=== PATIENT | female | born 1985 | race African-American/Black ===

== ENCOUNTER 2016-07-21 10:58 | Emergency (ER) | payer OTHER ==
[~2016-07-21] VITALS: Ht 162.6 cm; Wt 45.0 kg
[~2016-07-21 10:58] MED LIST: ARIP20 PO; HALO50P IM
[2016-07-21 10:59] VITALS: BP 151/96; PULSE 61; RESP 17; TEMP 98.2; O2SAT 99
[2016-07-21] MEDS ORDERED: HALD50IN IM (11:16)
--- NOTE | 2016-07-21 11:52 | PD ---
HPI Chief Complaint: Complaint Time Seen by Provider: 11:20 Travel History International Travel<30 days: No Contact w/Intl Traveler<30days: No Traveled to known affect area: No History of Present Illness HPI 31-year-old female came to the emergency room with history of vaginal itching and discharge. Patient came here to get it checked. She said she has had history of STD in the past. No history of fever or chills. No history of abdominal pain. [facility] Past Medical History Narrative Medical List of her past medical, surgical, social and family history was reviewed from the nursing note. Arthritis: No Asthma: No Autoimmune Disease: No Blood Disorders: No Bipolar Disorder: Yes Anxiety: No Depression: Yes Heart Rhythm Problems: No High Cholesterol: No Chemotherapy: No Chest Pain: No Congestive Heart Failure: No COPD: No Cerebrovascular Accident: No Diminished Hearing: No Gastrointestinal Disorders: Yes (VOMITING) GERD: No Gestational Age in Weeks: 28 Glaucoma: No Genitourinary: No Hepatitis: No Hiatal Hernia: No Hypertension: No Kidney Stones: No Musculoskeletal: No Neurologic: No Psychiatric: Yes (Inpatient, outpatient, psychotropic medications, and diagnosis) Reproductive: Yes (CHRONIC HX VAGINITIS ) Respiratory: No Myocardial Infarction: No Radiation Therapy: No Renal Failure: No Sickle Cell Disease: No Sleep Apnea: No Thyroid Disease: No Ulcer: No Tetanus Vaccination: > 5 Years Influenza Vaccination: No PNEUMOCCOCAL Vaccine (Year): 1 ?: Unknown LMP: JUNE 2016 : 2 Para: 1 Miscarriage: 0 : 1 Past Surgical History Surgical History: No Previous Surgery AICD: No Pacemaker: No Other Surgery: No Social History Alcohol Use: Yes (WINE OCCASIONALLY) Tobacco Use: No Substance Use: No (Patient denies.) Allergies-Medications (Allergen,Severity, Reaction): Coded Allergies: Latex (Verified Allergy, Severe, Itching, 07/21/16) Per Pt. Comments List of her allergies reviewed from the nurse's note. Reported Meds & Prescriptions Reported Meds & Active Scripts Active Flagyl (Metronidazole) 250 Mg Tab 250 Mg PO TID 7 Days Doxycycline Hyclate 100 Mg Cap 100 Mg PO BID 7 Days Reported Haldol Decanoate Inj (Haloperidol Decanoate) 50 Mg/Ml Inj 50 Mg IM Q28D Narrative Medication List of her home medications reviewed from the nursing note. Review of Systems Except as stated in HPI: all other systems reviewed are Neg Physical Exam Narrative GENERAL: Awake, alert, anxious, no obvious distress SKIN: Focused skin assessment warm/dry. HEAD: Atraumatic. Normocephalic. EYES: Pupils equal and round. No scleral icterus. No injection or drainage. ENT: No nasal bleeding or discharge. Mucous membranes pink and moist. NECK: Trachea midline. No JVD. CARDIOVASCULAR: Regular rate and rhythm. No murmur appreciated. RESPIRATORY: No accessory muscle use. Clear to auscultation. Breath sounds equal bilaterally. GASTROINTESTINAL: Abdomen soft, non-tender, nondistended. Hepatic and splenic margins not palpable. : Foul-smelling discharge noticed at the vaginal introitus. Speculum exam showed awake greenish cheesy discharge that was followed her. Patient had mild CMT and adnexal tenderness. MUSCULOSKELETAL: No obvious deformities. No clubbing. No cyanosis. No edema. NEUROLOGICAL: Awake and alert. No obvious cranial nerve deficits. Motor grossly within normal limits. Normal speech. PSYCHIATRIC: Appropriate mood and affect; insight and judgment normal. Data Data Last Documented VS Vital Signs Date Time Temp Pulse Resp B/P Pulse Ox O2 Delivery O2 Flow Rate FiO2 07/21/16 11:15 16 07/21/16 10:59 98.2 61 151/96 99 Orders Gc And Chlamydia Pcr (07/21/16 11:20) Wet Prep Profile (07/21/16 11:20) Urinalysis - C+S If Indicated (07/21/16 11:20) Ed Urine Pregnancytest Poc (07/21/16 11:23) Ceftriaxone Inj (Rocephin Inj) (07/21/16 12:45) Doxycycline (Vibramycin) (07/21/16 12:45) Metronidazole (Flagyl) (07/21/16 12:45) Labs Laboratory Tests Test 07/21/16 07/21/16 11:25 12:45 Urine Color YELLOW Urine Turbidity HAZY Urine pH 6.5 Urine Specific Guin 1.033 Urine Protein TRACE mg/dL Urine Glucose (UA) NEG mg/dL Urine Ketones NEG mg/dL Urine Occult Blood NEG Urine Nitrite NEG Urine Bilirubin NEG Urine Urobilinogen LESS THAN 2.0 MG/DL Urine Leukocyte Esterase LARGE Urine RBC 1 /hpf Urine WBC 2 /hpf Urine Squamous Epithelial 10 /hpf Cells Urine Hyaline Casts 1 /lpf Urine Mucus FEW /lpf Microscopic Urinalysis Comment CULT NOT INDICATED Clue Cells (Wet Prep) NONE SEEN Vaginal Trichomonas (Wet Prep) NONE SEEN Vaginal Yeast (Wet Prep) NONE SEEN Chlamydia trachomatis DNA NOT DETECTED (PCR) Neisseria gonorrhoeae DNA NOT DETECTED (PCR) MDM Medical Decision Making Medical Screen Exam Complete: Yes Emergency Medical Condition: Yes Medical Record Reviewed: Yes Differential Diagnosis STD, vaginitis, candidiasis Narrative Course 11:52 AM awaiting for the UA. I will be performing the pelvic exam soon. 12:48 PM based on the exam which was highly suggestive of STD at have gone ahead and ordered treatments. She'll go home on prescriptions. She's been explained about the procedure as well as to contact her partners to be treated if the tests are positive for STD. Patient seems to have limited intellect and repeats the same questions that have already been answered by me. I will asked the nurse to reiterate these once again. Procedures EKG Prior to Arrival: No Diagnosis Primary Impression: STD (female) Referrals: Primary Care Physician 2 days Additional Instructions: Please return to the ER if the condition worsens or any other new concerns. He shouldn't practice protected sex using condoms only for the next 3 weeks. If the tests are positive for GC and/or chlamydia we will call you in which case she'll have to notify your partner(s) so that they can be treated as well. Take the medications as per the prescription direction and finish the course. Med/Other Pt SpecificInfo: Prescription(s) given Scripts Metronidazole (Flagyl)250 Mg [id number] Mg PO TID 7 Days Ref 0 Prov:Kevin Lucero MD 07/21/16 Doxycycline Hyclate 100 Mg [id number] Mg PO BID 7 Days Ref 0 Prov:Kevin Lucero MD 07/21/16 Disposition: 01 DISCHARGE HOME Condition: Stable Kevin Lucero MD July 21, 2016 11:52
[2016-07-21 12:09] LABS: BLOOD, URINE NEG (NEG); COMMENT (UR) CULT NOT INDICATED; CULTURE IF INDICATED CULT NOT INDICATED; GLUCOSE,URINE NEG (NEG); HYALINE CAST, URINE 1 /lpf (RARE); KETONE, URINE NEG (NEG); MUCUS URINE FEW /lpf (OCC); NITRITE,URINE NEG (NEG); PH, URINE 6.5 (5.0-8.5); SQUAMOUS EPITHELIAL CELL URINE 10 /hpf (0-5); URINE COLOR YELLOW (YELLW/STRAW)
[2016-07-21] MEDS ORDERED: cefTRIAXone 250 MG VIAL IM ONE (12:45)
[2016-07-21] MEDS ORDERED: metroNIDAZOLE 500 MG TAB PO ONE (12:45)
[2016-07-21] MEDS ORDERED: DOXYCYCLINE HYCLATE 100 MG CAP PO ONE (12:45)
[2016-07-21] MEDS ORDERED: METR250 PO (12:50)
[2016-07-21] MEDS ORDERED: DOXY100C PO (12:50)
[2016-07-21 15:59] LABS: CHLAMYDIA PCR NOT DETECTED (NOT DETECT); NEISSERIA PCR NOT DETECTED (NOT DETECT)
== END 2016-07-21 13:43 | disposition home or self-care (01) ==
LOC: NEPD 10:58
DX: A64 Unspecified sexually transmitted disease (principal)
CPT/HCPCS: 81001; 84703; 87210; 87491; 87591; 96372; 99283; J0696

== ENCOUNTER 2016-08-26 06:08 | Emergency (ER) | payer OTHER ==
[~2016-08-26] VITALS: Ht 162.6 cm; Wt 47.5 kg
[~2016-08-26 06:08] MED LIST changes: -ARIP20 PO; +DOXY100C PO; +HALD50IN IM; -HALO50P IM; +METR250 PO
[2016-08-26 06:25] VITALS: BP 103/56; PULSE 70; RESP 14; TEMP 98; O2SAT 96
== END 2016-08-26 07:37 | disposition left against medical advice (07) ==
LOC: PHED 06:08
DX: R10.10 Upper abdominal pain, unspecified (principal)
CPT/HCPCS: 99281

== ENCOUNTER 2016-08-28 06:08 | Emergency (ER) | payer OTHER ==
[~2016-08-28] VITALS: Ht 162.6 cm; Wt 46.8 kg
[2016-08-28 06:13] VITALS: BP 99/71; PULSE 88; RESP 18; TEMP 98.1; O2SAT 100
--- NOTE | 2016-08-28 06:36 | PD ---
HPI Chief Complaint: vaginal discharge Time Seen by Provider: 06:18 Travel History International Travel<30 days: No Contact w/Intl Traveler<30days: No History of Present Illness HPI This is a 31-year-old female who presents to the emergency department with vaginal discharge, bloating and lower abdominal discomfort for 2 days. She denies any fevers or chills. Her symptoms have been mild, and constant. She struggled with vaginal discharge in the past but she says the bloating is new. She thinks she might be although she did have a menstrual cycle 2 weeks ago. She says that she's had negative urine test in the past despite being . PFSH Past Medical History Arthritis: No Asthma: No Autoimmune Disease: No Blood Disorders: No Bipolar Disorder: Yes Anxiety: No Depression: Yes Heart Rhythm Problems: No High Cholesterol: No Chemotherapy: No Chest Pain: No Congestive Heart Failure: No COPD: No Cerebrovascular Accident: No Diminished Hearing: No Gastrointestinal Disorders: Yes (VOMITING) GERD: No Gestational Age in Weeks: 28 Glaucoma: No Genitourinary: No Hepatitis: No Hiatal Hernia: No Hypertension: No Kidney Stones: No Musculoskeletal: No Neurologic: No Psychiatric: Yes (Inpatient, outpatient, psychotropic medications, and diagnosis) Reproductive: Yes (CHRONIC HX VAGINITIS ) Respiratory: No Myocardial Infarction: No Radiation Therapy: No Renal Failure: No Sickle Cell Disease: No Sleep Apnea: No Thyroid Disease: No Ulcer: No PNEUMOCCOCAL Vaccine (Year): 1 : 2 Para: 1 Miscarriage: 0 : 1 Past Surgical History AICD: No Pacemaker: No Other Surgery: No Social History Alcohol Use: Yes (WINE OCCASIONALLY) Tobacco Use: No Substance Use: No (Patient denies.) Allergies-Medications (Allergen,Severity, Reaction): Coded Allergies: Latex (Verified Allergy, Severe, Itching, 08/26/16) Per Pt. Reported Meds & Prescriptions Reported Meds & Active Scripts Active Flagyl (Metronidazole) 250 Mg Tab 250 Mg PO TID 7 Days Doxycycline Hyclate 100 Mg Cap 100 Mg PO BID 7 Days Reported Haldol Decanoate Inj (Haloperidol Decanoate) 50 Mg/Ml Inj 50 Mg IM Q28D Review of Systems Except as stated in HPI: all other systems reviewed are Neg Physical Exam Narrative Patient did not allow me to do a physical exam Data Data Last Documented VS Vital Signs Date Time Temp Pulse Resp B/P Pulse Ox O2 Delivery O2 Flow Rate FiO2 08/28/16 06:13 98.1 88 18 99/71 100 MDM Medical Decision Making Medical Screen Exam Complete: Yes Emergency Medical Condition: Yes Interpretation(s) Afebrile, no tachycardia, normotensive Differential Diagnosis Pelvic inflammatory disease, bacterial vaginosis, cervicitis, yeast infection, Narrative Course This is a 31-year-old female who presents to the emergency department with vaginal discharge and bloating. In my discussion with her I expressed my concern for the fact that she doesn't have a primary tuber machine operator. I explained to her that we don't do gynecologic health care maintenance including PAP smears in the emergency department. Per her records she has had 20 GC/ chlamydia tests performed in the [place] emergency departments in our system. I expressed to her that she should have a tuber machine operator managing her routine care , and I discussed Women's care now with her. The patient does have a history of bipolar disorder and became fairly antagonistic with me. She accused me of "not liking black people" and subsequently refused a pelvic exam and wanted to leave when I told her that we don't perform blood tests for this indication in the ED, only urine tests. I think her presentation and her behavior is related to her bipolar disorder. Olinda Padilla MD Aug 28, 2016 06:35
== END 2016-08-28 06:44 | disposition left against medical advice (07) ==
LOC: PHED 06:08
DX: N89.8 Other specified noninflammatory disorders of vagina (principal); F31.9 Bipolar disorder, unspecified
CPT/HCPCS: 99281

== ENCOUNTER 2016-10-27 09:32 | Emergency (ER) | payer OTHER ==
[~2016-10-27] VITALS: Ht 162.6 cm; Wt 46.0 kg
[2016-10-27 09:34] VITALS: BP 97/61; PULSE 90; RESP 20; TEMP 98.1; O2SAT 100
--- NOTE | 2016-10-27 10:24 | PD ---
HPI Chief Complaint: Contact Lens Fitter Problem/Complaint Time Seen by Provider: 09:50 Travel History International Travel<30 days: No Contact w/Intl Traveler<30days: No Traveled to known affect area: No History of Present Illness HPI The patient was seen and examined in the presence of the nurse. This patient complains of painful sexual intercourse. Duration 2 days. She also complains of vaginal discharge. Denies fever or bleeding. Severity is moderate. No alleviating factors PFSH Past Medical History Arthritis: No Asthma: No Autoimmune Disease: No Blood Disorders: No Bipolar Disorder: Yes Anxiety: No Depression: Yes Heart Rhythm Problems: No High Cholesterol: No Chemotherapy: No Chest Pain: No Congestive Heart Failure: No COPD: No Cerebrovascular Accident: No Diminished Hearing: No Gastrointestinal Disorders: Yes (VOMITING) GERD: No Gestational Age in Weeks: 28 Glaucoma: No Genitourinary: No Hepatitis: No Hiatal Hernia: No Hypertension: No Kidney Stones: No Musculoskeletal: No Neurologic: No Psychiatric: Yes (Inpatient, outpatient, psychotropic medications, and diagnosis) Reproductive: Yes (CHRONIC HX VAGINITIS ) Respiratory: No Myocardial Infarction: No Radiation Therapy: No Renal Failure: No Sickle Cell Disease: No Sleep Apnea: No Thyroid Disease: No Ulcer: No Tetanus Vaccination: Unknown Influenza Vaccination: No PNEUMOCCOCAL Vaccine (Year): 1 ?: Unknown : 2 Para: 1 Miscarriage: 0 : 1 Past Surgical History Surgical History: No Previous Surgery AICD: No Pacemaker: No Other Surgery: No Social History Alcohol Use: Yes (WINE OCCASIONALLY) Tobacco Use: No Substance Use: No (Patient denies.) Allergies-Medications (Allergen,Severity, Reaction): Coded Allergies: Latex (Verified Allergy, Severe, Itching, 08/26/16) Per Pt. Reported Meds & Prescriptions Reported Meds & Active Scripts Active Flagyl (Metronidazole) 250 Mg Tab 250 Mg PO TID 7 Days Doxycycline Hyclate 100 Mg Cap 100 Mg PO BID 7 Days Reported Haldol Decanoate Inj (Haloperidol Decanoate) 50 Mg/Ml Inj 50 Mg IM Q28D Review of Systems General / Constitutional: No: Fever Eyes: No: Visual changes HENT: No: Headaches Cardiovascular: No: Chest Pain or Discomfort Respiratory: No: Shortness of Breath Gastrointestinal: No: Abdominal Pain Genitourinary: Positive: Pelvic Pain, Discharge, No: Dysuria Musculoskeletal: Positive: Pain Skin: No Rash Neurologic: No: Weakness Psychiatric: No: Depression Endocrine: No: Polydipsia Hematologic/Lymphatic: No: Easy Bruising Physical Exam Narrative GENERAL: Well-nourished, well-developed patient in no apparent distress. SKIN: Focused skin assessment reveals no rash and nodules. Skin is Warm and dry. HEAD: Atraumatic. Normocephalic. EYES: Pupils equal and round. No scleral icterus. No injection or drainage. ENT: No nasal bleeding or discharge. Mucous membranes pink and moist. NECK: Trachea midline. No JVD. CARDIOVASCULAR: Regular rate and rhythm. No murmur appreciated. RESPIRATORY: No accessory muscle use. Clear to auscultation. Breath sounds equal bilaterally. GASTROINTESTINAL: Abdomen soft, non-tender, nondistended. Hepatic and splenic margins not palpable. MUSCULOSKELETAL: No obvious deformities. No clubbing. No cyanosis. No edema. NEUROLOGICAL: Awake and alert. No obvious cranial nerve deficits. Motor grossly within normal limits. Normal speech. PSYCHIATRIC: Appropriate mood and affect; insight and judgment normal. Pelvic: She has thick white clumped discharge in the vault. No cervical motion tenderness. No blood. No adnexal mass. Data Data Last Documented VS Vital Signs Date Time Temp Pulse Resp B/P Pulse Ox O2 Delivery O2 Flow Rate FiO2 10/27/16 09:45 18 10/27/16 09:34 98.1 90 97/61 100 Room Air Orders Wet Prep Profile (10/27/16 10:27) Gc And Chlamydia Pcr (10/27/16 10:27) Ed Urine Pregnancytest Poc (10/27/16 10:30) Labs Laboratory Tests Test 10/27/16 10:30 Clue Cells (Wet Prep) NONE SEEN Vaginal Trichomonas (Wet Prep) NONE SEEN Vaginal Yeast (Wet Prep) NONE SEEN MDM Medical Decision Making Medical Screen Exam Complete: Yes Emergency Medical Condition: Yes Medical Record Reviewed: Yes Differential Diagnosis PID, cervicitis, vaginitis Narrative Course I have reviewed the patient's electronic medical record. Patient's been here multiple times for STD and vaginitis issues Abdomen is soft and benign and nontender GC and Chlamydia swabs sent Wet prep is negative but on a clinical basis there is obvious yeast infection I recommended seven-day Monistat therapy and follow up with her physician Diagnosis Primary Impression: Yeast vaginitis Additional Instructions: The patient was advised to follow up with their physician and return if they worsen. Obtain seven-day Monistat therapy Med/Other Pt SpecificInfo: Other Disposition: 01 DISCHARGE HOME Condition: Stable Joby Engle MD Oct 27, 2016 10:23
[2016-10-27 12:30] VITALS: BP 115/67; PULSE 87; RESP 20; TEMP 98.1; O2SAT 100
[2016-10-27 13:00] LABS: CHLAMYDIA PCR NOT DETECTED (NOT DETECT); NEISSERIA PCR NOT DETECTED (NOT DETECT)
== END 2016-10-27 12:43 | disposition home or self-care (01) ==
LOC: NEPD 09:32
DX: B37.3 Candidiasis of vulva and vagina (principal)
CPT/HCPCS: 84703; 87210; 87491; 87591; 99283

== ENCOUNTER 2017-02-19 15:12 | Emergency (ER) | payer OTHER ==
[~2017-02-19] VITALS: Ht 162.6 cm; Wt 48.0 kg
[2017-02-19 15:13] VITALS: BP 108/61; PULSE 98; RESP 14; TEMP 98.6; O2SAT 100
--- NOTE | 2017-02-19 15:59 | PD ---
HPI Chief Complaint: Headache Time Seen by Provider: 15:38 Travel History International Travel<30 days: No Contact w/Intl Traveler<30days: No Traveled to known affect area: No History of Present Illness HPI 31 year old patient presents for evaluation of headache and lower abdominal pain with vaginal drainage. She states that her primary concern is the drainage , and abdominal pain. She states that she had sex about a month ago with a male partner and used a latex condom, despite being allergic to latex. She has had this discharge since that time. Her headache is a secondary concern which she describes as bandlike and frontal, without nausea, vomiting or neck pain. She denies head injury or LOC. She acknowledges sinus drainage. PFSH Past Medical History Arthritis: No Asthma: No Autoimmune Disease: No Blood Disorders: No Bipolar Disorder: Yes Anxiety: No Depression: Yes Heart Rhythm Problems: No High Cholesterol: No Chemotherapy: No Chest Pain: No Congestive Heart Failure: No COPD: No Cerebrovascular Accident: No Diminished Hearing: No Gastrointestinal Disorders: Yes (VOMITING) GERD: No Gestational Age in Weeks: 28 Glaucoma: No Genitourinary: No Hepatitis: No Hiatal Hernia: No Hypertension: No Kidney Stones: No Musculoskeletal: No Neurologic: No Psychiatric: Yes (Inpatient, outpatient, psychotropic medications, and diagnosis) Reproductive: Yes (CHRONIC HX VAGINITIS ) Respiratory: No Immunizations Current: Yes Myocardial Infarction: No Radiation Therapy: No Renal Failure: No Sickle Cell Disease: No Sleep Apnea: No Thyroid Disease: No Ulcer: No PNEUMOCCOCAL Vaccine (Year): 1 ?: Unknown LMP: 02/14/17 : 2 Para: 1 Miscarriage: 0 : 1 Past Surgical History AICD: No Pacemaker: No Other Surgery: No Social History Alcohol Use: Yes (WINE OCCASIONALLY) Tobacco Use: No Substance Use: No (Patient denies.) Allergies-Medications (Allergen,Severity, Reaction): Coded Allergies: latex (Unverified Allergy, Severe, Itching, 10/28/16) Per Pt. Reported Meds & Prescriptions Reported Meds & Active Scripts Active Flagyl (Metronidazole) 500 Mg Tab 500 Mg PO BID 7 Days Flagyl (Metronidazole) 250 Mg Tab 250 Mg PO TID 7 Days Doxycycline Hyclate 100 Mg Cap 100 Mg PO BID 7 Days Reported Haldol Decanoate Inj (Haloperidol Decanoate) 50 Mg/Ml Inj 50 Mg IM Q28D Review of Systems Except as stated in HPI: all other systems reviewed are Neg General / Constitutional: No: Fever, Chills Eyes: No: Diploplia, Blurred Vision HENT: Positive: Headaches, Rhinitis, No: Vertigo, Lightheadedness, Sore Throat Cardiovascular: No: Chest Pain or Discomfort Respiratory: Positive: Shortness of Breath, No: Cough Gastrointestinal: No: Nausea, Vomiting, Diarrhea Genitourinary: No: Urgency, Frequency, Dysuria Musculoskeletal: No: Myalgias Skin: No Rash Neurologic: No: Weakness, Dizziness, Syncope, Focal Abnormalities Psychiatric: Positive: Mood Disorder Physical Exam Narrative GENERAL: patient is laying in bed on her phone in no acute distress SKIN: Warm and dry. HEAD: Atraumatic. Normocephalic. EYES: Pupils equal and round. No scleral icterus. No injection or drainage. ENT: No nasal bleeding or discharge. Mucous membranes pink and moist. NECK: Trachea midline. No JVD. CARDIOVASCULAR: Regular rate and rhythm. RESPIRATORY: No accessory muscle use. Clear to auscultation. Breath sounds equal bilaterally. GASTROINTESTINAL: Abdomen soft, minimally-tender to deep palpation in the suprapubic region, nondistended. Hepatic and splenic margins not palpable. GENITOURINARY: Exam performed with female nurse system validation engineer present all times, scant thick white discharge consistent with BV, no cervical motion tenderness no cervical friability. MUSCULOSKELETAL: Extremities without clubbing, cyanosis, or edema. No obvious deformities. NEUROLOGICAL: Awake and alert. No obvious cranial nerve deficits. Motor grossly within normal limits. Five out of 5 muscle strength in the arms and legs. Normal speech. PSYCHIATRIC: Appropriate mood and affect; insight and judgment normal. Data Data Last Documented VS Vital Signs Date Time Temp Pulse Resp B/P (MAP) Pulse Ox O2 Delivery O2 Flow Rate FiO2 02/19/17 17:16 02/19/17 15:43 18 Room Air 02/19/17 15:13 98.6 98 100 Orders Orders Wet Prep Profile (02/19/17 15:46) Gc And Chlamydia Pcr (02/19/17 15:46) Ed Discharge Order (02/19/17 16:29) Labs Laboratory Tests Test 02/19/17 16:30 Clue Cells (Wet Prep) PRESENT Vaginal Trichomonas (Wet Prep) NONE SEEN Vaginal Yeast (Wet Prep) NONE SEEN MDM Medical Decision Making Medical Screen Exam Complete: Yes Emergency Medical Condition: Yes Differential Diagnosis Tension headache, Bacterial Vaginosis, PID, Narrative Course Urine test, Pelvic exam Patient roomed emergency department, UPT negative, has no obvious cervicitis, was offered empiric treatment for possible STD exposure but she states she's not had any STD exposure. We'll cover with Flagyl. STD probe sent. Discussed with her Will call her if the results are positive. She does not want workup for her headache at this time. She is stable for discharge Diagnosis Primary Impression: Bacterial vaginosis Med/Other Pt SpecificInfo: Prescription(s) given Scripts Metronidazole (Flagyl) 500 Mg Tab 500 MG PO BID for Infection for 7 Days, #14 TAB 0 Refills Prov: Javy Bee MD 02/19/17 Disposition: 01 DISCHARGE HOME Condition: Stable Javy Bee MD Feb 19, 2017 15:59
[2017-02-19] MEDS ORDERED: METR-1 PO (16:30)
[2017-02-19 19:45] LABS: CHLAMYDIA PCR DETECTED (NOT DETECT); NEISSERIA PCR NOT DETECTED (NOT DETECT)
== END 2017-02-19 17:16 | disposition home or self-care (01) ==
LOC: NEPD 15:12
DX: N76.0 Acute vaginitis (principal); R51 Headache; F31.9 Bipolar disorder, unspecified; Z87.19 Personal history of other diseases of the digestive system; Z87.42 Personal history of other diseases of the female genital tract; Z72.89 Other problems related to lifestyle
CPT/HCPCS: 87210; 87491; 87591; 99283